=== PATIENT | male | born 1960 | race Caucasian/White ===

== ENCOUNTER 2022-04-09 22:24 | Inpatient (IN) | payer MEDICAID ==
[~2022-04-09] VITALS: Ht 172.7 cm; Wt 98.1 kg
[2022-04-09 22:46] LABS: BASOPHILS # (AUTO) 0.1 X10'3 (0-0.2); EOSINOPHILS % (AUTO) 0.3 % (0-6); HEMATOCRIT 44.2 % (42.0-52.0); LYMPHOCYTES # (AUTO) 0.9 X10'3 (1.1-4.8); LYMPHOCYTES % (AUTO) 7.6 % (21-51); MEAN CORPUSCULAR HEMOGLOBIN 31.1 PG (27.0-31.0); MEAN CORPUSCULAR HGB CONC 31.6 g/dL (33.0-36.5); MEAN CORPUSCULAR VOLUME 98.2 FL (78-98); MEAN PLATELET VOLUME 9.3 FL (7.4-10.4); MONOCYTES # (AUTO) 0.6 X10'3 (0-0.9); MONOCYTES % (AUTO) 4.8 % (2-12); NEUTROPHILS # (AUTO) 10.8 X10'3 (1.8-7.7); NEUTROPHILS % (AUTO) 86.3 % (42-75); PLATELET COUNT 352 X10'3 (140-440); RED CELL DISTRIBUTION WIDTH 16.1 % (11.5-14.5); WHITE BLOOD COUNT 12.5 X10'3 (4.5-11.0)
[2022-04-09 22:59] LABS: ABG BASE EXCESS 6.3 mmol/L (-2.0-2.0); ABG HCO3 37.7 mmol/L (22.0-26.0); ABG OXYGEN SATURATION 98.3 % (94-97); ABG PCO2 (T) 92.4 mmHg (35.0-48.0); ABG PO2 (T) 145.4 mmHg (75.0-100.0); ALLEN'S TEST Modified; FCOHb 1.8 % (0.0-3.9); FLOW 16 L/min; FMetHb 0.3 % (0.0-1.5); FO2Hb 96.2 % (94-97); TOTAL HEMOGLOBIN 14.6 G/dl (14.0-18.0)
[2022-04-09 23:08] LABS: TOTAL CELLS COUNTED 100
[2022-04-09 23:09] LABS: ANISOCYTOSIS 1+; PLATELET ESTIMATE NORMAL
[2022-04-09 23:10] LABS: GIANT PLATELET FEW
[2022-04-09 23:11] LABS: ALANINE AMINOTRANSFERASE 69 U/L (12-78); ALBUMIN 3.1 G/DL (3.4-5.0); ALBUMIN/GLOBULIN RATIO 0.6 (1.1-1.5); ALKALINE PHOSPHATASE 65 IU/L (46-116); ANION GAP 2 (8-16); ASPARTATE AMINO TRANSFERASE 135 U/L (10-37); BILIRUBIN,TOTAL 0.4 MG/DL (0.1-1.0); BLOOD UREA NITROGEN 44 MG/DL (7-18); BUN/CREATININE RATIO 12.8 (5.4-32.0); CALCIUM 8.9 MG/DL (8.5-10.1); CHLORIDE 92 MMOL/L (99-107); CREATININE 3.43 MG/DL (0.60-1.10); ETHANOL < 0.010 GM/DL (0.0-0.010); GLUCOSE 144 MG/DL (70-104); POTASSIUM 4.4 MMOL/L (3.5-5.1); SODIUM 136 MMOL/L (135-145); eGFR 18 ML/MIN
[2022-04-09 23:16] LABS: CREATINE KINASE 2762 U/L (39-308)
[2022-04-09 23:17] LABS: TOTAL CARBON DIOXIDE 42.4 MMOL/L (24-32)
[2022-04-09] MEDS ORDERED: normal saline 1000ML IV soln IVB ONE (23:20)
[2022-04-09] MEDS ORDERED: naloxone 2mg/2ml inj IV STA (23:20)
[2022-04-09] MEDS ORDERED: CefTRIAXone/D5W-Rocephin 1gm 50 ML IV ONE (23:20)
[2022-04-09] MEDS ORDERED: LIDO1ADH78 (23:38)
[2022-04-09] MEDS ORDERED: naloxone 2mg/2ml inj 2 MG in normal saline 500ml IV soln 498 ML IV SCH (23:55)
[2022-04-10] VITALS (29 sets, daily range): BP systolic 80–154; BP diastolic 41–76
[2022-04-10 00:38] LABS: CLARITY,URINE CLEAR (Clear); COLOR,URINE YELLOW (Yellow); GLUCOSE, URINE NEGATIVE (Neg); KETONES,URINE TRACE mg/dl (Neg); LEUKOCYTE ESTERASE ,URINE NEGATIVE (Neg); NITRITES, URINE NEGATIVE (Neg); OCCULT BLOOD,URINE MODERATE (Neg); PROTEIN,URINE TRACE mg/dl (Neg); UROBILINOGEN,URINE 0.2 E.U/dL (0.2-1.0)
[2022-04-10 00:41] LABS: UA COLLECTION TYPE NON-SPECIFIED
[2022-04-10 00:44] LABS: BACTERIA,URINE 1+ /HPF (Neg); SQUAMOUS EPITHELIAL CELL,UR FEW /LPF (FEW); WBC,URINE 0-4 /HPF (0-4)
[2022-04-10 00:45] LABS: MUCUS STRANDS FEW /LPF (Neg); TRANSITIONAL EPI CELLS,URINE FEW /HPF
--- NOTE | 2022-04-10 00:45 | NUR ---
condition change patient mental staus declinging along with bp, verb for normal saline bolus given and administered m armenta by this rn, discussion occurred with starting iv vasopressors , vasopressures started taylor when availible from pharmacy,provider aware bp and pt condition
[2022-04-10 00:46] LABS: URINE AMPHETAMINE SCREEN NEGATIVE (Neg); URINE BARBITUATE SCREEN NEGATIVE (Neg); URINE BENZODIAZEPINES SCREEN POSITIVE (Neg); URINE CANNABINOID SCREEN NEGATIVE (Neg); URINE COCAINE SCREEN NEGATIVE (Neg); URINE METHADONE SCREEN NEGATIVE (Neg); URINE OPIATE SCREEN POSITIVE (Neg); URINE PHENCYCLIDINE SCREEN NEGATIVE (Neg)
[2022-04-10] MEDS ORDERED: albuterol 2.5 MG/3 ML nebule NEB ONE (01:00)
[2022-04-10] MEDS ORDERED: normal saline 1000ml 1,000 ML IV ONE (01:20)
[2022-04-10] MEDS ORDERED: azithromycin/NS 500mg/250ml 250 ML IV ONE (01:20)
[2022-04-10] MEDS: epiNEPHrine inj 5 MG in normal saline 250ml IV soln 245 ML IV SCH ×8 (02:01→04:22)
--- NOTE | 2022-04-10 02:24 | NUR ---
preparing to insert central venous access, attempting ij to start by kathi
--- NOTE | 2022-04-10 02:43 | NUR ---
central access successful one attempt xr chest ordered for placement
[2022-04-10] MEDS ORDERED: acetaminophen 650mg rectal suppository RC PRN (02:50)
[2022-04-10] MEDS ORDERED: potassium Cl 20mEq/100mL bag 100 ML IV PRN (02:50)
[2022-04-10] MEDS ORDERED: magnesium hydroxide 30ml (MOM) UD suspension PO PRN (02:50)
[2022-04-10] MEDS: normal saline 1000ml 1,000 ML IV SCH ×3 (02:50→22:55)
[2022-04-10] MEDS ORDERED: ondansetron/PF 4mg/2ml inj IV PRN (02:50)
[2022-04-10] MEDS ORDERED: magnesium 2GM in 50ml NS 50 ML IV PRN (02:50)
[2022-04-10] MEDS ORDERED: LIDOcaine 2% 10ml TOPICAL JELLY (Urojet) TP ONE (02:50)
[2022-04-10] MEDS: naloxone 2mg/2ml inj 2 MG in normal saline 500ml IV soln 498 ML IV SCH ×2 (02:50→22:50)
[2022-04-10 03:08] LABS: ABG BASE EXCESS 10.2 mmol/L (-2.0-2.0); ABG HCO3 44.2 mmol/L (22.0-26.0); ABG PCO2 (T) 126.2 mmHg (35.0-48.0); ABG PO2 (T) 94.8 mmHg (75.0-100.0); ALLEN'S TEST Modified; FCOHb 1.6 % (0.0-3.9); FMetHb 0.5 % (0.0-1.5); PATIENT TEMPERATURE 36.9; RESPIRATORY RATE 18 b/min
[2022-04-10] MEDS ORDERED: etomidate 2mg/ml inj. IV ONE (03:10)
[2022-04-10] MEDS ORDERED: midazolam 100mg in NS 100ml 100 ML IV PRN (03:10)
[2022-04-10] MEDS ORDERED: fentaNYL/PF 50MCG/1 ML 2ML syringe IV PRN (03:10)
[2022-04-10] MEDS ORDERED: propofol 1000mg/100ml bottle 100 ML IV SCH (03:30)
[2022-04-10] MEDS ORDERED: rocuronium 10mg/ml inj IV ONE ×2 (03:40→03:45)
[2022-04-10 03:57] LABS: TRIGLYCERIDES 196 MG/DL (20-135)
[2022-04-10 04:23] LABS: ABG BASE EXCESS 3.8 mmol/L (-2.0-2.0); ABG HCO3 34.6 mmol/L (22.0-26.0); ABG OXYGEN SATURATION 95.5 % (94-97); ABG PCO2 (T) 88.2 mmHg (35.0-48.0); ABG PO2 (T) 94.8 mmHg (75.0-100.0); ALLEN'S TEST Modified; FCOHb 0.9 % (0.0-3.9); FMetHb 0.4 % (0.0-1.5); FO2Hb 94.3 % (94-97); PATIENT TEMPERATURE 36.8; PEEP 5 cm H2O; RESPIRATORY RATE 20 b/min; TIDAL VOLUME 400 mL
--- NOTE | 2022-04-10 05:35 | NUR ---
I have received report and assumed care from ER of a 61 year old man with respitory failure positive toxicology for opiates and benzodiazepine, a known history of copd and colostomy reversal pt on a mechanical ventilator, epinephrin drip in place titrating down as tolerated to keep MAP greater then 60 pt is on a Narcan drip and Levophed drip as well.
[2022-04-10] MEDS: NORepinephrine 8mg/ 250ml NS 250 ML IV PRN ×3 (05:51→19:34)
--- NOTE | 2022-04-10 06:15 | NUR ---
Report given to rec rn plan of care reviewed
[2022-04-10 07:16] LABS: BASOPHILS # (AUTO) 0.1 X10'3 (0-0.2); BASOPHILS % (AUTO) 0.3 % (0-1); EOSINOPHILS % (AUTO) 0 % (0-6); HEMATOCRIT 37.9 % (42.0-52.0); LYMPHOCYTES # (AUTO) 0.6 X10'3 (1.1-4.8); LYMPHOCYTES % (AUTO) 2.6 % (21-51); MEAN CORPUSCULAR HEMOGLOBIN 31.8 PG (27.0-31.0); MEAN CORPUSCULAR HGB CONC 31.8 g/dL (33.0-36.5); MEAN PLATELET VOLUME 9.5 FL (7.4-10.4); MONOCYTES # (AUTO) 1.5 X10'3 (0-0.9); MONOCYTES % (AUTO) 6.2 % (2-12); NEUTROPHILS % (AUTO) 90.9 % (42-75); PLATELET COUNT 313 X10'3 (140-440); RED BLOOD COUNT 3.79 X10'6 (4.70-6.10); WHITE BLOOD COUNT 24.2 X10'3 (4.5-11.0)
[2022-04-10 07:23] LABS: ALANINE AMINOTRANSFERASE 56 U/L (12-78); ALBUMIN 2.5 G/DL (3.4-5.0); ALBUMIN/GLOBULIN RATIO 0.6 (1.1-1.5); ALKALINE PHOSPHATASE 54 IU/L (46-116); ANION GAP 4 (8-16); ASPARTATE AMINO TRANSFERASE 121 U/L (10-37); BILIRUBIN,TOTAL 0.4 MG/DL (0.1-1.0); BLOOD UREA NITROGEN 44 MG/DL (7-18); BUN/CREATININE RATIO 17.9 (5.4-32.0); CALCIUM 7.5 MG/DL (8.5-10.1); CHLORIDE 96 MMOL/L (99-107); CREATININE 2.46 MG/DL (0.60-1.10); GLUCOSE 284 MG/DL (70-104); POTASSIUM 3.4 MMOL/L (3.5-5.1); SODIUM 135 MMOL/L (135-145); TOTAL CARBON DIOXIDE 35.2 MMOL/L (24-32); TOTAL PROTEIN 6.4 G/DL (6.4-8.2); eGFR 27 ML/MIN
[2022-04-10 07:47] LABS: TOTAL CELLS COUNTED 100
[2022-04-10 07:48] LABS: PLATELET ESTIMATE NORMAL
[2022-04-10 07:49] LABS: ANISOCYTOSIS 1+
[2022-04-10] MEDS: heparin, porcine 5000 units/ml vial SQ SCH ×2 (07:54→20:02)
[2022-04-10] MEDS: K and/or MAG REPLACEMENT MC SCH (08:00)
[2022-04-10] MEDS ORDERED: famotidine/PF 10 mg/ml inj IV SCH (08:00)
[2022-04-10] MEDS ORDERED: insulin regular, human U-100 3ml vial - multi-dose SQ SCH (08:05)
[2022-04-10] MEDS ORDERED: dextrose 50%-water 50ml dispensing syringe IV PRN (08:05)
[2022-04-10] MEDS ORDERED: PEG 3350/Na sulf,bicarb,Cl/KCl oral sol 4 liter bottle PO ONE (10:25)
--- NOTE | 2022-04-10 11:18 | NUR ---
Initial: Pt admit for AMS with EDI, rhabdomyolysis, PNA, and respiratory failure. Pt currently intubated and sedated, Propofol visualized at bedside to be running at 5.7 mL/hr providing 150 kcal/day. No TF consult at this time though will place recommendations below for if expected prolonged intubation and to receive nutrition support. Will continue to follow closely. Recommendations: 1) IF TF, continuous Vital HP with 80 mL/hr goal rate. Begin at 20 mL/hr and advance by 20 mL Q8H as tolerated to goal rate; monitor for a scaled weight and need to adjust recs 2) IF TF, monitor serum Na for water flushes; currently on the low end of WNL 3) IF TF, prealbumin q Friday/; daily scaled weights 4) Routine bowel care Addendum: 04/10/22 at [address] Amended: Links added.
[2022-04-10] MEDS ORDERED: epiNEPHrine 0.1mg/ml 10ml syringe ONE (12:00)
[2022-04-10] MEDS ORDERED: levoFLOXACIN-Levaquin 500mg/D5 100 ML IV SCH (13:00)
[2022-04-10] MEDS: clindamycin 600mg/D5W 50ml 50 ML IV SCH (14:31)
[2022-04-10] MEDS ORDERED: FENTANYL-0.9 % NACL/PF 100 ML IV PRN (18:40)
--- NOTE | 2022-04-10 21:25 | NUR ---
Called and spoke with Dr. De Jesus to report critical blood culture of gram positive cocci in clusters from aerobic bottle from 04/10/22 at 0139. Pt currently on clindamycin and levaquin. gave new order for vanco---pharmacy to dose. See order for details.
[2022-04-10] MEDS ORDERED: VANCOmycin 2,000MG in NS 500ml IV soln IV ONE (22:00)
[2022-04-10] MEDS ORDERED: vancomycin/NS 1 GM ADD-VANTAGE 250 ML IV ONE (22:22)
[2022-04-10] MEDS ORDERED: vancomycin/NS 1 GM ADD-VANTAGE 250 ML X 1 DOSE IV ONE (22:25)
[2022-04-10] MEDS ORDERED: fentaNYL 2,500 MCG in Normal Saline 250ml IV soln bag IV SCH (23:45)
[2022-04-11] VITALS (27 sets, daily range): BP systolic 76–182; BP diastolic 41–162
[2022-04-11] MEDS: NORepinephrine 8mg/ 250ml NS 250 ML IV PRN ×2 (00:21→09:43)
[2022-04-11] MEDS: clindamycin 600mg/D5W 50ml 50 ML IV SCH ×3 (00:39→15:28)
[2022-04-11] MEDS: propofol 1000mg/100ml bottle 100 ML IV SCH ×2 (02:31→03:45)
[2022-04-11 02:37] LABS: BASOPHILS # (AUTO) 0.2 X10'3 (0-0.2); BASOPHILS % (AUTO) 1.4 % (0-1); EOSINOPHILS # (AUTO) 0.1 X10'3 (0-0.9); EOSINOPHILS % (AUTO) 0.6 % (0-6); HEMATOCRIT 36.6 % (42.0-52.0); HEMOGLOBIN 11.9 g/dl (14.0-17.9); LYMPHOCYTES # (AUTO) 2.4 X10'3 (1.1-4.8); LYMPHOCYTES % (AUTO) 14.7 % (21-51); MEAN CORPUSCULAR HEMOGLOBIN 31.6 PG (27.0-31.0); MEAN CORPUSCULAR HGB CONC 32.6 g/dL (33.0-36.5); MEAN CORPUSCULAR VOLUME 96.9 FL (78-98); MEAN PLATELET VOLUME 9.4 FL (7.4-10.4); MONOCYTES # (AUTO) 1.5 X10'3 (0-0.9); MONOCYTES % (AUTO) 9.4 % (2-12); NEUTROPHILS # (AUTO) 11.9 X10'3 (1.8-7.7); NEUTROPHILS % (AUTO) 73.9 % (42-75); PLATELET COUNT 297 X10'3 (140-440); RED BLOOD COUNT 3.78 X10'6 (4.70-6.10); RED CELL DISTRIBUTION WIDTH 15.8 % (11.5-14.5); WHITE BLOOD COUNT 16.2 X10'3 (4.5-11.0)
[2022-04-11 02:50] LABS: ALANINE AMINOTRANSFERASE 56 U/L (12-78); ALBUMIN/GLOBULIN RATIO 0.6 (1.1-1.5); ALKALINE PHOSPHATASE 48 IU/L (46-116); ANION GAP 2 (8-16); ASPARTATE AMINO TRANSFERASE 208 U/L (10-37); BILIRUBIN,TOTAL 0.5 MG/DL (0.1-1.0); BLOOD UREA NITROGEN 25 MG/DL (7-18); CALCIUM 7.8 MG/DL (8.5-10.1); CHLORIDE 102 MMOL/L (99-107); CREATININE 1.19 MG/DL (0.60-1.10); GLUCOSE 119 MG/DL (70-104); MAGNESIUM 1.9 MG/DL (1.5-2.4); POTASSIUM 3.8 MMOL/L (3.5-5.1); SODIUM 141 MMOL/L (135-145); TOTAL CARBON DIOXIDE 36.9 MMOL/L (24-32); TOTAL PROTEIN 5.6 G/DL (6.4-8.2); TRIGLYCERIDES 106 MG/DL (20-135); eGFR 62 ML/MIN
--- NOTE | 2022-04-11 06:43 | NUR ---
1800 Report given to this RN from DOLLY Owusu. Drips verified. Pt in restraints and intubated and vented at 30% fiO2. Pt was restless and agitated. Fentanyl drip started and increased. Propofol started and increased as well. Levophed drip able to be decreased. No BM. Galeana intact and adequate output. 0615 Report given to DOLLY Castaneda. Drips verified. Restraints remain on and needed. Pt remains intubated with FiO2 35%. Pt in no acute distress at time of handoff.
[2022-04-11] MEDS: K and/or MAG REPLACEMENT MC SCH (08:00)
[2022-04-11] MEDS ORDERED: pantoprazole 40MG/NS 100ML BAG 100 ML IV SCH (08:00)
[2022-04-11] MEDS: heparin, porcine 5000 units/ml vial SQ SCH (08:20)
[2022-04-11 08:21] LABS: PHOSPHORUS 2.1 MG/DL (2.3-4.5)
[2022-04-11 08:32] LABS: CREATINE KINASE 3108 U/L (39-308)
[2022-04-11] MEDS: normal saline 1000ml 1,000 ML IV SCH ×2 (08:50→15:20)
[2022-04-11] MEDS ORDERED: Neutra Phos packet PO PRN (08:55)
--- NOTE | 2022-04-11 11:15 | NUR ---
Noted pt with a low Yong of 11. Per RN pt with a surgical wound to abdomen s/p colostomy reversal in November. Pt remains NPO at this time, pending extubation per MD at critical care rounds. Will continue to follow closely and monitor need for nutrition intervention. Addendum: 04/11/22 at [address] Amended: Links added.
[2022-04-11] MEDS ORDERED: vancomycin/NS 1 GM ADD-VANTAGE 250 ML IV SCH (12:00)
--- NOTE | 2022-04-11 12:43 | NUR ---
PRESSURE ULCER EDUCATION: DEFINITION: A pressure ulcer is an area of skin that breaks down when you stay in one position too long. The constant pressure against the skin reduces the blood flow to that area and the affected tissue dies. CAUSES: "Being bedridden or in a wheelchair "Fragile skin "Having a chronic condition, such as diabetes or vascular disease "Inability to move certain parts of your body without assistance "Older age "Incontinence of urine or stool SYMPTOMS: "A reddened area that DOES NOT turn white when pressed on - this can be the beginning of a pressure ulcer "A blister, deep sore or a crater - these can be advanced pressure ulcers FIRST AID: "Relieve the pressure on this area "Keep the area clean and dry "Call your primary doctor if you see any of the above symptoms "DO NOT massage the area "DO NOT use a donut shaped or ring shaped pillow- these actually interfere with the blood flow and cause complications PREVENTION: "Check for pressure ulcers everyday "Change position at least every two hours to relieve pressure "Use items that help relieve pressure- pillows, sheepskin, foam padding, and powders. "Keep skin clean and dry "Eat healthy well balanced meals "Exercise daily IF YOU SEE ANY OF THESE SYMPTOMS WHILE IN THE HOSPITAL - TELL YOUR NURSE IMMEDIATELY. IF YOU SEE ANY OF THESE SYMPTOMS WHILE AT HOME OR HAVE ANY QUESTIONS OR CONCERNS ABOUT PRESSURE ULCERS - CALL YOUR PRIMARY DOCTOR IMMEDIATELY. Addendum: 04/11/22 at 1244 by Fabiola Marlow LVN Amended: Links added.
[2022-04-11] MEDS ORDERED: MSC30T PO (15:01)
[2022-04-11] MEDS ORDERED: LORA-269 PO (15:01)
[2022-04-11] MEDS ORDERED: MIRT7.5T11 PO (15:01)
[2022-04-11] MEDS ORDERED: GABA300C PO (15:01)
[2022-04-11] MEDS ORDERED: IBUP-1986 PO (15:01)
[2022-04-11] MEDS ORDERED: SENN-263 PO (15:01)
[2022-04-11] MEDS ORDERED: ESCI20TA39 PO (15:01)
[2022-04-11] MEDS ORDERED: CHOL100046 PO (15:01)
[2022-04-11] MEDS ORDERED: FLO0.4C PO (15:01)
[2022-04-11] MEDS ORDERED: FURO40TA4 PO (15:01)
[2022-04-11] MEDS ORDERED: POTA-82 PO (15:01)
[2022-04-11] MEDS ORDERED: ATOR20TA66 PO (15:01)
[2022-04-11] MEDS ORDERED: METO5TAB98 PO (15:01)
[2022-04-11] MEDS ORDERED: HYDR-3973 PO (15:01)
[2022-04-11] MEDS ORDERED: acetaminophen 325mg tablet PO PRN (17:40)
--- NOTE | 2022-04-11 17:47 | NUR ---
Comfort care initiated; Norepinephrine stopped. Spoke with daughter Dara to confirm. Orders placed by Dr. Aviles.
--- NOTE | 2022-04-11 18:23 | NUR ---
Problems reprioritized. Patient report given, questions answered & plan of care reviewed with Caren ALBERTO.
--- NOTE | 2022-04-11 18:23 | NUR ---
Patient in room ICU 2041. I have received report from DOLLY James and had the opportunity to ask questions and assume patient care. Patient on comfort care measures. Patient is oriented to person. Jey is confused, pulling at lines, attmpting to get out of bed. Addendum: 04/11/22 at 1857 by Lelia Orellana RN Patient reoriented, repositioned in bed with improved behavior. Patient treated for pain.
[2022-04-11] MEDS: morphine 10mg/ml inj. IV PRN ×2 (18:45→22:19)
[2022-04-11] MEDS: LORazepam 2 mg/ml vial IV PRN (20:58)
[2022-04-12] MEDS: morphine 10mg/ml inj. IV PRN ×2 (00:40→04:29)
--- NOTE | 2022-04-12 01:21 | NUR ---
Patient wakes up and answers questions, at times is confused. Patient resistant to care at times with agitation. MD orders followed for pain and agitation medications. While sleeping patient with accessory muscle use - abdominal breathing at rate of 21 breaths per minute.
--- NOTE | 2022-04-12 04:18 | NUR ---
Patient wakes up with repositioning, very sleepy, follows commands, does not attempt to communicate verbally. Patient falls back to sleep easily.
--- NOTE | 2022-04-12 06:24 | NUR ---
Problems reprioritized. Patient report given, questions answered & plan of care reviewed with DOLLY Castaneda.
[2022-04-12 06:28] VITALS: BP 75/41
[2022-04-12] MEDS: K and/or MAG REPLACEMENT MC SCH (08:00)
[2022-04-12] MEDS ORDERED: VANCOMYCIN LEVEL IV ONE (11:30)
--- NOTE | 2022-04-12 12:36 | NUR ---
Problems reprioritized. Patient report given, questions answered & plan of care reviewed with Alirio ALBERTO.
[2022-04-12] MEDS: LORazepam 2 mg/ml vial IV PRN (12:49)
--- NOTE | 2022-04-12 13:50 | NUR ---
F/u 04/12: Noted pt has been made DNR w/ comfort care per EMR. Will continue to follow. Recommendations: 1) bowel care per rx Addendum: 04/12/22 at [address] Amended: Links added.
[2022-04-12] MEDS: morphine 10mg/0.5ml (conc. morphine) oral syringe PO PRN ×3 (13:59→23:29)
--- NOTE | 2022-04-12 18:05 | NUR ---
Patient on PCU. I have received report from Rolando ALBERTO and had the opportunity to ask questions and assume patient care. Pt will arrive on bed from PCU to room 2092B
[2022-04-12 19:30] VITALS: BP 103/51
[2022-04-13] MEDS: LORazepam 2 mg/ml vial IV PRN (02:44)
--- NOTE | 2022-04-13 04:35 | NUR ---
[facility] documentation: I have reviewed and agree with all interventions, assessments performed and documented by Marilyn MEDINA.
--- NOTE | 2022-04-13 06:31 | NUR ---
Problems reprioritized. Patient report given, questions answered & plan of care reviewed with Idalmis ALBERTO.
--- NOTE | 2022-04-13 06:39 | NUR ---
Patient in room ORTHO 4015. I have received report from Zoey ALBERTO and Marilyn MEDINA and had the opportunity to ask questions and assume patient care.
--- NOTE | 2022-04-13 06:44 | NUR ---
Patient in room ORTHO 4015. I have received report from DOLLY Hicks and had the opportunity to ask questions and assume patient care.
[2022-04-13 10:17] VITALS: BP 80/50
--- NOTE | 2022-04-13 18:36 | NUR ---
Problems reprioritized. Patient report given, questions answered & plan of care reviewed with DOLLY Brownlee.
--- NOTE | 2022-04-13 18:42 | NUR ---
Patient in room ORTHO 4018. I have received report from MARY ALBERTO and had the opportunity to ask questions and assume patient care.
[2022-04-13 19:00] VITALS: BP 104/54
[2022-04-14 06:00] VITALS: BP 105/68
--- NOTE | 2022-04-14 06:15 | NUR ---
Patient in room ORTHO 4017. I have received report from Miguel A ALBERTO and had the opportunity to ask questions and assume patient care.
--- NOTE | 2022-04-14 06:23 | NUR ---
Problems reprioritized. Patient report given, questions answered & plan of care reviewed with MARIPOSA ALBERTO.
[2022-04-14] MEDS: LORazepam 2 mg/ml vial IV PRN (06:59)
--- NOTE | 2022-04-14 07:19 | NUR ---
Received report from savanna RN patient appeared in distress HR [id number] Resp 34 given 4mg Ativan. will continue to monitor
--- NOTE | 2022-04-14 09:25 | NUR ---
patient 9[address] Dr Faulkner notified, daughter Dara notified.
--- NOTE | 2022-04-14 10:46 | NUR ---
[facility] called patient is not a candidate for organ donation. Body prepared for DC. [facility] called with regards picking up patient. Awaiting ride
--- NOTE | 2022-04-14 11:59 | NUR ---
Patient was picked up by [facility] at 1200.
== END 2022-04-14 11:55 | DRG 720 ==
LOC: ER 22:26 → EDBD 22:26 → ED HOLD 04-10 03:03 → ICU 2S 04-10 05:00 → PCU 3S 04-12 12:27 → ORTHO 4S 04-12 19:10
PROVIDERS: ADMIT Internal Medicine; ATTEND Family Medicine
PROC: 02HV33Z Insertion of Infusion Device into Superior Vena Cava, Percutaneous Approach (ICD-10-PCS; 2022-04-09)
PROC: 5A1945Z Respiratory Ventilation, 24-96 Consecutive Hours (ICD-10-PCS; principal; 2022-04-10)
PROC: 0BH17EZ Insertion of Endotracheal Airway into Trachea, Via Natural or Artificial Opening (ICD-10-PCS; 2022-04-10)
DX: A41.9 Sepsis, unspecified organism (principal); N17.0 Acute kidney failure with tubular necrosis; J96.02 Acute respiratory failure with hypercapnia; J96.01 Acute respiratory failure with hypoxia; J15.1 Pneumonia due to Pseudomonas; G93.41 Metabolic encephalopathy; R65.21 Severe sepsis with septic shock; J44.0 Chronic obstructive pulmonary disease with (acute) lower respiratory infection; Z51.5 Encounter for palliative care; Z66 Do not resuscitate; E83.39 Other disorders of phosphorus metabolism; Z20.822 Contact with and (suspected) exposure to COVID-19; E87.2 Acidosis; T40.601A Poisoning by unspecified narcotics, accidental (unintentional), initial encounter; F19.10 Other psychoactive substance abuse, uncomplicated; M62.82 Rhabdomyolysis; Z78.1 Physical restraint status; Z79.899 Other long term (current) drug therapy; Y92.098 Other place in other non-institutional residence as the place of occurrence of the external cause
CPT/HCPCS: 31500; 36415; 36556; 36600; 70450; 71045; 80053; 80305; 80320; 81001; 82140; 82550; 82803; 82948; 83605; 83735; 84100; 84145; 84478; 84484; 85007; 85018; 85025; 87040; 87070; 87077; 87081; 87186; 87811; 94003; 94640; 94660; 94668; 94760; 99291; 99292; A4615; A6212; A6213; A6266; A6449; A9900; C9113; G0378; J0171; J0456; J0696; J1644; J1956; J2060; J2274; J2310; J2704; J3010; J3370; J3490; J7030; J7040; J7050